=== PATIENT | male | born 1955 | race Caucasian/White ===

== ENCOUNTER 2019-05-05 09:12 | Emergency (ER) | payer BC ==
--- OUTSIDE RECORDS SUMMARY | 2019-05-05 09:30 | XMS REPORT | Continuity of Care Document ---
:1955 External Reference #:[id number] Author Name Carolyn Asencio FNP Address [address] [place] [id number] Care Team Providers Name Role Phone Carolyn Asencio ICT SUPPORT ENGINEER - Nurse Care Team Information Canine Service Teacher [phone] Practitioner Problems Active Problems Provider Date Essential hypertension Martha Solis, JANNETTE Onset: 03/26/2011 Hyperlipidemia Martha Solis, JANNETTE Onset: 03/26/2011 Migraine without aura, not refractory Carolyn Asencio FNP Onset: 2014 Social History Type Date Description Comments Sex Unknown ETOH Use Never used alcohol Tobacco Use Start: Unknown Patient has never smoked Smoking Status Reviewed: 04/07/19 Patient has never smoked Allergies, Adverse Reactions, Alerts Active Allergies Reaction Severity Comments Date Doxycycline 12/21/2010 Acetazolamide Fatigue 08/11/2018 Medications Active Medications SIG Qnty Indications Ordering Date Provider Sumatriptan Succinate Take 1 Tablet 21tabs G43.009 Elif, 01/05/2018 50mg By Mouth If Jennifergaby, Tablets 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, May Repeat Dose After 2 Hours.Maximu m Daily Dose Of 2 Tablets Hydrochlorothiazide Take 1 Tablet 90tabs I10 Neeru Lantigua, 08/23/2015 25mg Tablets By Mouth Every MD Day Maximum Daily Dose Of 1 Per Day Celebrex take 1 capsule 90caps Elif, 11/30/2014 200mg Capsules by mouth once Lizettefergaby, daily POSTAL SUPERINTENDENT Loratadine take 1 tablet 90tabs [place], 03/11/2014 10mg Tablets by mouth once Marium Parikh daily Atorvastatin Calcium Take 1 Tablet 90tabs Neeru Lantigua, 09/02/2011 80mg Tablets By Mouth Every MD Day, Maximum Daily Dose Of 1 Per Day Quinapril HCL Take 1 Tablet 90tabs Neeru Lantigua, 12/07/2010 40mg Tablets By Mouth Every MD Day Maximum Daily Dose Of 1 Per Day Immunizations CPT Code Status Date Vaccine Lot # [id number] Given 01/05/2018 Influenza Virus Vaccine, Quadrivalent, 36 Mos+, [id number] 26846 Given 12/05/2016 Influenza High Dose [id number] Given 01/09/2015 Influenza Vaccine (Fluzone) Age 3 And Older [id number] 61717 Given 02/11/2013 flu vaccination [id number] Given 05/10/2009 Tetnus Injection 27194 Given Unknown Tdap injection Vital Signs Date Vital Result Comment 04/07/2019 1:27pm BP Systolic 124 mmHg BP Diastolic 65 mmHg Body Temperature 96.9 F Heart Rate 70 /min Respiratory Rate 18 /min Height 71 inches 5'11" Weight 234.38 lb BMI (Body Mass Index) 32.7 kg/m2 BSA (Body Surface Area) 2.26 m2 [place] body weight in kilograms 78 kg O2 % BldC Oximetry 97 % Ra 08/11/2018 2:17pm BP Systolic 120 mmHg BP Diastolic 70 mmHg Heart Rate 66 /min Respiratory Rate 18 /min Height 71 inches 5'11" Weight 230.00 lb BMI (Body Mass Index) 32.1 kg/m2 BSA (Body Surface Area) 2.24 m2 [place] body weight in kilograms 78 kg O2 % BldC Oximetry 96 % Results Description No Information Available Procedures Description No Information Available Medical Devices Description No Information Available Encounters Type Date Location Provider Dx Diagnosis Office Visit 04/07/2019 [facility] Chapo Asencio Dysphasia 1:30p RD [place] I10 Essential (primary) hypertension Assessments Date Code Description Provider 04/07/2019 R47.02 Dysphasia Carolyn Asencio FNP 04/07/2019 I10 Essential (primary) hypertension Carolyn Asencio FNP Plan of Treatment Future Appointment(s):08/16/2019 11:30 am - Carolyn Asencio FNP at [facility] RD04/07/2019 - Carolyn Asencio FNPR47.02 DysphasiaComments: rare episode of food being stuck - does not appear recurrent in naturediscussed chewing food to applesauce consistencyDrinking water with meals and after every mouthfulIf it begins to occur more regularly or you start having other symptoms , would consider ENT referral at that time.I10 Essential (primary) hypertensionComments:Blood pressure at goal (<130/85) Well controlled. Continue current medications.Follow up:CPE mid ot end of August w/fasting labs a week prior Functional Status Functional Condition Comment Date Status Independent with all ADL's Active Glasses Active Mental Status Description No Information Available Referrals Description No Information Available
--- OUTSIDE RECORDS SUMMARY | 2019-05-05 09:30 | XMS REPORT | Continuity of Care Document ---
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, May Repeat Dose After 2 Hours.Maximu m Daily Dose Of 2 Tablets Hydrochlorothiazide Take 1 Tablet 90tabs I10 Neeru Lantigua, 08/23/2015 25mg Tablets By Mouth Every MD Day Maximum Daily Dose Of 1 Per Day Celebrex take 1 capsule 90caps Elif, 11/30/2014 200mg Capsules by mouth once Lizettefergaby, daily TRUST EVALUATION SUPERVISOR Loratadine take 1 tablet 90tabs [place], 03/11/2014 [...] CPT Code Status Date Vaccine Lot # [id number] Given 01/05/2018 Influenza Virus Vaccine, Quadrivalent, 36 Mos+, [id number] 70220 Given 12/05/2016 Influenza High Dose [id number] Q2038 Given 01/09/2015 Influenza Vaccine (Fluzone) Age 3 And Older [id number] 26209 Given 02/11/2013 flu vaccination 07095 Given 05/10/2009 Tetnus Injection 71370 Given Unknown Tdap injection Vital Signs Date Vital Result Comment 04/07/2019 1:27pm BP Systolic 124 mmHg BP Diastolic 65 mmHg Body Temperature 96.9 F Heart Rate 70 /min Respiratory Rate 18 /min Height 71 inches 5'11" Weight 234.38 lb BMI (Body Mass Index) 32.7 kg/m2 BSA (Body Surface Area) 2.26 m2 [place] body weight in kilograms 78 kg O2 % BldC Oximetry 97 % Ra 08/11/2018 2:17pm BP Systolic 120 mmHg BP Diastolic 70 mmHg Heart Rate 66 /min Respiratory Rate 18 /min Height 71 inches 5'11" Weight 230.00 lb BMI (Body Mass Index) 32.1 kg/m2 BSA (Body Surface Area) 2.24 m2 [place] body weight in kilograms 78 kg O2 % BldC Oximetry 96 % Results Description No Information Available Procedures Description No Information Available Medical Devices Description No Information Available Encounters Type Date Location Provider Dx Diagnosis Office Visit 04/07/2019 [facility] Chapo Asencio Dysphasia 1:30p RD [place] I10 Essential (primary) hypertension Assessments Date Code Description Provider 04/07/2019 R47.02 Dysphasia Carolyn Asencio FNP 04/07/2019 I10 Essential (primary) hypertension Carolyn Asencio FNP Plan of Treatment Future Appointment(s):08/16/2019 11:30 am - Carolyn Asencio FNP at [facility] RD04/07/2019 - Carolyn Asencio FNPR47.02 DysphasiaComments: [...]
--- NOTE | 2019-05-05 10:30 | UC ---
FLU HPI - HPI Summary HPI Summary: 63 y/o male presents to the urgent care c/o 2 episodes of vomiting s/p eating a bowl of cereals since Friday05/02/2019. However Friday05/04/2019 he woke up w/ fatigue, body aches, stomach ache around epigastric area, decrease appetite, mild clear nasal congestion. This morning, he woke up feeling miserable, but stomach discomfort is gone, but w/ a lot of body aches. Pt denies constipation, diarrhea, fever, cough, SOB, dizziness, chest pain, neck pain, GOLDSTEIN, numbness or tingling sensation over the extremities, rash, Hx of recent travel outside the country. Pt is drinking fluids, but still has decrease appetite. - History of Current Complaint Chief Complaint: UCGeneralIllness Stated Complaint: VOMITING, ABD PAIN Time Seen by Provider: 05/05/19 10:14 Hx Obtained From: Patient Onset/Duration: Gradual Onset, Lasting Days - 3 days, Still Present Severity Currently: Mild Severity Initially: Mild Pain Intensity: 2 - body aches Pain Scale Used: 0-10 Numeric Associated Signs & Symptoms: Positive: Myalgia, Nasal Congestion - clear, Vomiting - 2 episodes in the past 3 days. Negative: Fever, T Max, Cough, Sore Throat, Headache, Diarrhea - Risk Factors Influenza Risk Factors: Negative - Allergy/Home Medications Allergies/Adverse Reactions: Allergies Allergy/AdvReac Type Severity Reaction Status Date / Time bee venom protein (honey bee) Allergy Unknown Verified 05/05/19 09:58 Reaction Details acetazolamide AdvReac Fatigue Verified 05/05/19 09:58 doxycycline AdvReac Fatigue Verified 05/05/19 09:58 Home Medications: Home Medications Atorvastatin* [Lipitor 80 MG*] 80 mg PO DAILY 05/05/19 [History Confirmed ] Hydrochlorothiazide TAB* [Hydrodiuril TAB*] 25 mg PO DAILY 05/05/19 [History Confirmed 05/05/19] Loratadine 10 mg PO DAILY 05/05/19 [History Confirmed 05/05/19] Quinapril HCl 40 mg PO DAILY 05/05/19 [History Confirmed 05/05/19] SUMAtriptan TAB* [Imitrex TAB*] 50 mg PO DAILY 05/05/19 [History Confirmed 05/04] celeCOXIB CAP* [Celebrex CAP*] 200 mg PO DAILY 05/05/19 [History Confirmed 05/04] PMH/Surg Hx/FS Hx/Imm Hx Previously Healthy: Yes Endocrine History: Dyslipidemia Cardiovascular History: Hypertension Neurological History: Migraine - Surgical History Surgical History: Yes Surgery Procedure, Year, and Place: cataracts - Family History Known Family History: Positive: Hypertension - Social History Occupation: Employed Full-time Lives: With Family Alcohol Use: None Substance Use Type: None Smoking Status (MU): Never Smoked Tobacco Review of Systems All Other Systems Reviewed And Are Negative: Yes Constitutional: Positive: Chills, Fatigue, Other - body Skin: Positive: Negative Eyes: Positive: Negative ENT: Positive: Nasal Discharge - clear Respiratory: Positive: Negative Cardiovascular: Positive: Negative Gastrointestinal: Positive: Abdominal Pain - stomach ache which resolved today, Vomiting - 2 episodes of vomiting for the past 3 days. Negative: Diarrhea Genitourinary: Positive: Negative Motor: Positive: Negative Neurovascular: Positive: Negative Musculoskeletal: Positive: Myalgia Neurological/Mental Status: Positive: Negative Psychological: Positive: Negative Is Patient Immunocompromised?: No Physical Exam - Summary Physical Exam Summary: VITAL SIGNS: Reviewed. GENERAL: Patient is a well developed and nourished male who is sitting comfortably in the examining table. Patient is not in any acute respiratory distress. HEAD AND FACE: No signs of trauma. No ecchymosis, hematomas or skull depressions. No sinus tenderness. EYES: PERRLA, EOMI x 2, No injected conjunctiva, no nystagmus. No photophobia. EARS: Hearing grossly intact. Ear canals and tympanic membranes are within normal limits. MOUTH: Positive pharynx with mild erythema, no exudates, No B/L tonsillar enlargement , no exudate. Uvula in midline. edematous nasal mucosa w/ clear nasal discharge, clear PND NECK: Supple, trachea is midline, Positive anterior cervical lymphadenopathy, no JVD, no carotid bruit, no c-spine tenderness, neck with full ROM. No meningeal signs, no Kernig's or brudzinskis signs. CHEST: Symmetric, no tenderness at palpation LUNGS: Clear to auscultation bilaterally. No wheezing or crackles. CVS: Regular rate and rhythm, S1 and S2 present, no murmurs or gallops appreciated. Abdomen Description: Positive: Nontender, Other: - Abd: Flat with no distention. No surface trauma, scars, incisions. hyperactive bowel sounds present in all four quadrants. No tenderness, guarding, rigidity to palpation. No masses palpated, no pulsation in epigastric area. No organomegaly. Negative [place] signs. No periumbilical tenderness. No rebound in the lower quadrants. NT over McBurneys point. Good femoral pulses bilaterally. No hernia noted. No CVAT bilaterally EXTREMITIES: FROM in all major joints, no edema, no cyanosis or clubbing. NEURO: Alert and oriented x 3. No acute neurological deficits. Pt follows commands. SKIN: Dry and warm Triage Information Reviewed: Yes Vital Signs: Initial Vital Signs Temp 98.3 F 05/05/19 09:49 Pulse 71 05/05/19 09:49 Resp 17 05/05/19 09:49 BP 95/48 05/05/19 09:49 Pulse Ox 100 05/05/19 09:49 Flu Course/Dx - Course Course Of Treatment: 63 y/o male presents to the urgent care c/o 2 episodes of vomiting s/p eating a bowl of cereals since Friday05/02/2019. However Friday05/04/2019 he woke up w/ fatigue, body aches, stomach ache around epigastric area, decrease appetite, mild clear nasal congestion. This morning, he woke up feeling miserable, but stomach discomfort is gone, but w/ a lot of body aches. Pt denies constipation, diarrhea, fever, cough, SOB, dizziness, chest pain, neck pain, GOLDSTEIN, numbness or tingling sensation over the extremities, rash, Hx of recent travel outside the country. Pt is drinking fluids, but still has decrease appetite. Hx obtained. Pt is hemodynamically stable, A&OX3, VS:WNL, except for BP:95/48. Pt w/ Hx of HTN and dyslipidemia. Pt states BP was taken at triage w/ a loose BP cuff. BP repeated by nurse 100/52. Pt w/ a viral syndrome on examination. Rapid influenza A&B: negative. Pt's symptoms discussed w/ DR Le and he receommended EKG: NSR, HR: 68bpm, No ST- elevations or Depressions. Pt states he recently took his BP medication about 1 hr ago. Pt strongly advised increae hydration and close observations on his symptoms and they worsen w/ dizziness, SOB, severe GOLDSTEIN, chest pain, diaphoresis to go inmediately go to the ER for further management, Otherwise, f/u w/ his PCP in 2-3 days for further management on his HTN. Also advise to take ibuprofen PO or Tylenol to alleviates symptoms, hand washing to avoid spreading, rest, eat well and avoid strenuous exercise. I. Pt understood and agreed w/ plan of care. - Differential Dx/Diagnosis Differential Diagnosis/HQI/PQRI: Bronchitis, Influenza, Pneumonia, Upper Respiratory Infection, Other - MO, bradycardia Provider Diagnosis: Viral syndrome Discharge ED - Sign-Out/Discharge Documenting (check all that apply): Patient Departure All imaging exams completed and their final reports reviewed: No Studies - Discharge Plan Condition: Stable Disposition: HOME-RECOMMEND TO ED Patient Education Materials: Viral Syndrome (ED) Referrals: Rosa Isela Florez [Primary Care Provider] - 2 Days Additional Instructions: 1- Please close observation on your symptoms. Influenza A&B: negative. Encourage hand washing and wear a mask to avoid spreading. 2-Please continue taking Motrin PO q6-8hrs prn as instructed after meals to alleviate fever, and sore throat. Increase fluid intake, eat well, rest and avoid strenuous exercise 3- However, if symptoms worsen and you develop chest pain, SOB, severe abdominal pain, N/V or dizziness and BP decreases please go immediately to the [place] [facility] for further optician manager, Otherwise f/u w/ your PCP in not improvement of symptoms for further evaluation and treatment. - Billing Disposition and Condition Condition: STABLE Disposition: Home-Recommend to ED
[2019-05-05 10:38] VITALS: BP 100/52
[2019-05-05 10:45] LABS: Influenza A Molecular Negative (Negative); Influenza B Molecular Negative (Negative)
== END 2019-05-05 11:05 | disposition home health service (06) ==
LOC: UCCORT 09:12
DX: B34.9 Viral infection, unspecified (principal); R11.10 Vomiting, unspecified; M79.10 Myalgia, unspecified site; R09.81 Nasal congestion; I10 Essential (primary) hypertension; E78.5 Hyperlipidemia, unspecified; Z91.030 Bee allergy status; Z88.8 Allergy status to other drugs, medicaments and biological substances; Z88.1 Allergy status to other antibiotic agents; Z79.899 Other long term (current) drug therapy
CPT/HCPCS: 93005; 99201; G0463